=== PATIENT | female | born 1985 | race Hispanic/Latino ===

== ENCOUNTER → 2021-11-08 | Outpatient (CLI) | payer OTHER ==
[~2021-11-08] MED LIST: IOPAMIDOL 300 MG/ML 15ML VIAL IT ONE
== END ==
LOC: DX 09:10
PROVIDERS: ATTEND Obstetrics & Gynecology Reproductive Endocrinology
DX: D25.9 Leiomyoma of uterus, unspecified (principal)
CPT/HCPCS: 74740; 81025; Q9967